=== PATIENT | female | born 1960 | race Caucasian/White ===

== ENCOUNTER → 2016-11-27 | Outpatient (CLI) | payer BC ==
[~2016-11-27] MED LIST: LOTREL PO; MULTTAB58 PO; WARF2TAB PO
--- NOTE | 2016-11-27 16:37 | MAMMOGRAPHY REPORT ---
BILATERAL DIGITAL SCREENING MAMMOGRAM TOMOSYNTHESIS WITH CAD: 11/27/2016 CLINICAL HISTORY: Routine screening. Patient has no complaints. TECHNIQUE: Breast tomosynthesis in addition to standard 2D mammography was performed. Current study was also evaluated with a Computer Aided Detection (CAD) system. COMPARISON: Comparison is made to exams dated: 11/04/2015 mammogram, 11/01/2014 mammogram, 11/04/20 13 mammogram, and 10/29/2013 mammogram - [facility]. BREAST COMPOSITION: There are scattered areas of fibroglandular density in both breasts. FINDINGS: No suspicious mass, architectural distortion or cluster of microcalcifications is seen. IMPRESSION: ACR BI-RADS CATEGORY 1: NEGATIVE There is no mammographic evidence of malignancy. A 1 year screening mammogram is recommended. The p atient will receive written notification of the results. Approximately 10% of breast cancers are not detected with mammography. A negative mammographic repor t should not delay biopsy if a clinically suggestive mass is present. Lelia link/zackery:11/27/2016 15:18:28 Gluing Machine Operator: Jaky Romero, [facility] letter sent: Normal 1/2 BI-RADS Code: ACR BI-RADS Category 1: Negative
== END | disposition home or self-care (01) ==
LOC: C.MAMM 07:33
PROVIDERS: ATTEND Obstetrics & Gynecology
DX: Z12.31 Encounter for screening mammogram for malignant neoplasm of breast (principal)

== ENCOUNTER → 2017-12-02 | Outpatient (CLI) | payer OTHER ==
--- NOTE | 2017-12-02 14:48 | MAMMOGRAPHY REPORT ---
BILATERAL DIGITAL SCREENING MAMMOGRAM TOMOSYNTHESIS WITH CAD: 12/02/2017 CLINICAL HISTORY: Routine screening examination. TECHNIQUE: Breast tomosynthesis in addition to standard 2D mammography was performed. Current study was also evaluated with a Computer Aided Detection (CAD) system. COMPARISON: Comparison is made to exams dated: 11/27/2016 mammogram, 11/04/2015 mammogram, 11/01/2014 mammogram, 11/04/2013 mammogram, 10/29/2013 mammogram, and 10/28/2012 mammogram - [facility]. BREAST COMPOSITION: There are scattered areas of fibroglandular density in both breasts. FINDINGS: The parenchymal pattern is unchanged. No developing mass, architectural distortion or clus ter of suspicious microcalcifications is seen in either breast. IMPRESSION: ACR BI-RADS CATEGORY 2: BENIGN There is no mammographic evidence of malignancy. A 1 year screening mammogram is recommended. The pa tient will receive written notification of the results. Approximately 10% of breast cancers are not detected with mammography. A negative mammographic report should not delay biopsy if a clinically suggestive mass is present. Lelia Nunez M.D. ay/:12/02/2017 08:11:35 Acid Tank Cleaner: Jaky ANGEL(Domenic)(Zenia), [facility] letter sent: Normal 1/2 BI-RADS Code: ACR BI-RADS Category 2: Benign
== END | disposition home or self-care (01) ==
LOC: C.MAMM 07:40
PROVIDERS: ATTEND Obstetrics & Gynecology
DX: Z12.31 Encounter for screening mammogram for malignant neoplasm of breast (principal)

== ENCOUNTER 2022-10-14 16:39 | Observation (INO) ==
[2022-10-14 17:09] LABS: Basophils # (auto) 0.06 K/uL (0-0.2); Basophils % (auto) 0.4 %; Eosinophils # (auto) 0.07 K/uL (0-0.50); Eosinophils % (auto) 0.4 %; Hemoglobin 15.1 g/dl (12.0-16.0); Immature Granulocytes # (auto) 0.06 K/uL (0.00-0.02); Immature Granulocytes % (auto) 0.4 %; Lymphocytes # (auto) 2.29 K/uL (1.2-3.4); Lymphocytes % (auto) 13.8 %; Mean Corpuscular Hemoglobin 30.8 pg (25.0-34.0); Mean Corpuscular Hgb Conc 33.6 g/dL (32.0-36.0); Mean Corpuscular Volume 91.8 fL (80.0-100.0); Mean Platelet Volume 9.4 fL (9.4-12.3); Monocytes % (auto) 6.6 %; Neutrophils # (auto) 13.01 K/uL (1.4-6.5); Neutrophils % (auto) 78.4 %; Platelet Count 375 K/uL (130-400); RDW Standard Deviation 43.7 fL (36.4-46.3); White Blood Count 16.59 K/ul (4.8-10.8)
[2022-10-14 17:21] LABS: Partial Thromboplastin Ratio 0.9; Partial Thromboplastin Time 25.4 Seconds (21.0-31.0); Prothrombin Time 10.6 Seconds (9.0-12.0)
[2022-10-14 17:36] LABS: Albumin Globulin Ratio 1.6 (0.9-2); Albumin Level 4.6 gm/dl (3.4-5.0); BUN Creatinine Ratio 18.3 (10-20); Bilirubin,Total 0.6 mg/dl (0.2-1.0); Calcium 9.9 mg/dl (8.5-10.1); Creatinine Clr Calc Pharmacy 107.3 ml/min; Est GFR (African American) 113.2 ml/min; Est GFR (Non-African American) 97.7 ml/min; Globulin 2.9 gm/dl (2.5-4.0); Potassium 3.5 mmol/L (3.5-5.1); Total Protein 7.5 gm/dl (6.0-8.3)
--- NOTE | 2022-10-14 17:41 | XRay Report ---
XR chest 1V not portable HISTORY: 62 years-old Female Chest Pain acute chest pain COMPARISON: 03/22/2014 TECHNIQUE: AP view of the chest FINDINGS: Cardiomediastinal and hilar silhouettes are within normal limits. No pneumothorax, pleural effusion, airspace consolidation or overt pulmonary edema. Bones appear grossly intact. IMPRESSION: No acute process. ACT 112: Negative or not required by law. The above report was generated using voice recognition software. It may contain grammatical, syntax o r spelling errors. Electronically signed by: Jarred Celeste M.D. 10/14/2022 5:40 PM
--- NOTE | 2022-10-14 18:43 | Ultrasound Report ---
US gallbladder HISTORY: 62 years-old Female ruq pain acute right upper quadrant abdominal pain COMPARISON: Abdominal ultrasound 12/02/2012 TECHNIQUE: Multiple real-time sonographic images of the abdominal right upper quadrant were obtained assessing grayscale appearance, color and Doppler flow FINDINGS: The liver measures 15.1 cm in length and is unremarkable. No hepatic mass identified. Negative sonogr aphic Toro's sign. Mild gallbladder distention with layering cholelithiasis. No gallbladder wall th ickening or pericholecystic fluid identified. Normal common bile duct, 4 mm. The imaged right kidney is unremarkable without hydronephrosis. IMPRESSION: 1. Cholelithiasis without sonographic evidence of acute cholecystitis. 2. No biliary ductal dilation. ACT 112: Negative or not required by law. The above report was generated using voice recognition software. It may contain grammatical, syntax o r spelling errors. Electronically signed by: Jarred Celeste M.D. 10/14/2022 6:42 PM
[2022-10-14] MEDS ORDERED: KETOROLAC 30 MG/ML VIAL IV STA (18:52)
[2022-10-14] MEDS ORDERED: SODIUM CHLORIDE 0.9% 1000ML 1,000 ML IV ONE (18:52)
--- NOTE | 2022-10-14 19:10 | Emergency Department Note ---
History of Present Illness General Chief complaint: Chest Pain Stated complaint: CHEST TIGHTNESS/PAIN,STERNUM PAIN, VOMITING Time Seen by Provider: 10/14/22 17:40 History of Present Illness Maximum Pain Intensity: 7 62-year-old female presents to the ED with a chief complaint of right upper quadrant and epigastric abdominal pain that started around 1 AM this morning. She states that she ate a turkey dinner and stuffing and potatoes yesterday around 5 PM. She had nausea and vomiting a couple of times through the night. She states that her pain has persisted and even got worse through the day. She reports a dull achy pain. She denies having any nausea now. She has not eaten since yesterday because of her symptoms. No fevers. Home Medications Medication Instructions Recorded Confirmed Type MULTIPLE VITAMIN (MULTIVITAMIN) 1 tab PO 3-4XWK #0 tabs 12/24/12 01/31/22 History lotrel 10/40mg 1 tab PO DAILY ##0 12/24/12 01/31/22 History WARFARIN SODIUM (COUMADIN) 2 mg PO DAILY #60 tabs 04/16/14 Rx methylprednisolone 4 mg tablets in See Rx Instructions .Route 08/30/20 08/30/20 Rx a dose pack .COMPLEX #21 ea mometasone 50 mcg/actuation nasal 2 spray intranasal DAILY #17 grams 08/30/20 01/31/22 Rx spray Allergies Allergy/AdvReac Type Severity Reaction Status Date / Time ethinyl estradiol Allergy Mild sinus Verified 01/31/22 13:03 [From Seasonale (91)] congestion levonorgestrel Allergy Mild sinus Verified 01/31/22 13:03 [From Seasonale (91)] congestion No Known Drug Allergies Allergy Verified 08/30/20 09:31 Past Med/Surg History Medical History (Updated 10/14/22 @ 19:10 by Andrés Pitt DO) Conductive hearing loss of both ears Hypertension Seasonal allergies Surgical History H/O umbilical hernia repair H/O: hysterectomy History of hip replacement Family History Father Hypertension Heart disease Mother Hypertension Stroke Allergies Denies family history of Hearing loss No family history of adverse response to anesthesia No family history of bleeding disorder Cancer Asthma Social History Smoking Status: Never smoker Hx Alcohol Use: Yes Alcohol Intake Frequency Comment: 1-2 times a month Hx Substance Use: No Preferred Language: [place] Communication Ability: Effective marital status: Current Living Situation: Spouse current occupational status: employed current occupation: [employer] Instructor How many Children do You have: 2 Feels Safe at Home: Yes Review of Systems A total of 10 systems reviewed and were otherwise negative Physical Exam Vital Signs Vital Signs - 24 hr 10/14/22 16:43 10/14/22 17:53 10/14/22 18:00 Temperature 37.3 C Temperature Source Temporal Artery Scan Pulse Rate 89 70 70 Pulse Rate from SpO2 Sensor 71 70 Respiratory Rate 20 12 15 Respiratory Effort / Characteristics Non-Labored Respiratory Depth Normal Respiratory Pattern Regular Blood Pressure 155/97 H Blood Pressure Mean 116 Blood Pressure Position Sitting Pulse Oximetry 99 99 99 Oxygen Delivery Method Room Air Sepsis Recent Fever Within 48 Hours No Sepsis New/Unexplained Change in Mental Status No Sepsis Action Taken by Nursing No Action Required 10/14/22 18:39 10/14/22 18:39 10/14/22 18:40 Temperature Temperature Source Pulse Rate 74 74 Pulse Rate from SpO2 Sensor 78 73 Respiratory Rate 7 L 17 Respiratory Effort / Characteristics Respiratory Depth Respiratory Pattern Blood Pressure 162/96 H Blood Pressure Mean 118 Blood Pressure Position Pulse Oximetry 98 98 Oxygen Delivery Method Sepsis Recent Fever Within 48 Hours Sepsis New/Unexplained Change in Mental Status Sepsis Action Taken by Nursing CONSTITUTIONAL/VITAL SIGNS: Reviewed / noted above. GENERAL: Non-toxic in appearance. INTEGUMENTARY: Warm, dry, and [place]. HEAD: Normocephalic. EYES: without scleral icterus or trauma. ENT/OROPHARYNX: clear and moist. LYMPHADENOPATHY/NECK: Is supple without lymphadenopathy or meningismus. RESPIRATORY: Clear to auscultation bilaterally. No increased work of breathing. CARDIOVASCULAR: Regular rate and rhythm. GI/ABDOMEN: Soft and tender in the right upper quadrant and epigastric area. No organomegaly or pulsatile mass. EXTREMITIES: Warm and well perfused. BACK: No CVA tenderness. NEUROLOGICAL: Intact without focal deficits. PSYCHIATRIC: normal affect. MUSCULOSKELETAL: Normally developed with good muscle tone. TRIAGE NURSING DOCUMENTATION REVIEWED. Course Administered Medications Sodium Chloride (Nss 1000ml) 1,000 mls @ 999 mls/hr IV .Q1H1M ONE Stop: 10/14/22 19:52 Last Admin: 10/14/22 18:59 Dose: 999 mls/hr Documented By: EMILY Discontinued Medications Ketorolac Tromethamine (Ketorolac 30 Mg/Ml Vial) 30 mg IV NOW STA Stop: 10/14/22 18:53 Last Admin: 10/14/22 19:03 Dose: 30 mg Documented By: EMILY Medical Decision Making Differential Diagnosis Differential considered: pancreatitis, hepatitis, acute cholecystitis, AAA, UTI, pyelonephritis, kidney stones, appendicitis, diverticulitis, shingles, bowel obstruction, mesenteric ischemia, intussusception,hernia Medical Records Attestation: I reviewed the patient's medical records. Home Medications Current Medication List: was personally reviewed by me Laboratory Data Attestation: I reviewed the patient's lab results. Result diagrams: 10/14/22 16:50 10/14/22 16:50 Lab Results 10/14/22 10/14/22 10/14/22 Range/Units 16:50 16:50 16:50 WBC 16.59 H (4.8-10.8) K/ul RBC 4.90 (3.93-5.22) M/uL Hgb 15.1 (12.0-16.0) g/dl Hct 45.0 H (34.1-44.9) % MCV 91.8 (80.0-100.0) fL MCH 30.8 (25.0-34.0) pg MCHC 33.6 (32.0-36.0) g/dL RDW Std Deviation 43.7 (36.4-46.3) fL RDW Coeff of Annita 13.0 (11.5-14.5) % Plt Count 375 (130-400) K/uL MPV 9.4 (9.4-12.3) fL Immature Gran % (Auto) 0.4 % Neut % (Auto) 78.4 % Lymph % (Auto) 13.8 % Bath % (Auto) 6.6 % Eos % (Auto) 0.4 % Baso % (Auto) 0.4 % Neut # (Auto) 13.01 H (1.4-6.5) K/uL Lymph # (Auto) 2.29 (1.2-3.4) K/uL Bath # (Auto) 1.10 H (0.24-0.82) K/uL Eos # (Auto) 0.07 (0-0.50) K/uL Baso # (Auto) 0.06 (0-0.2) K/uL Immature Gran # (Auto) 0.06 H (0.00-0.02) K/uL PT 10.6 (9.0-12.0) Seconds INR 1.0 (0.9-1.1) APTT 25.4 (21.0-31.0) Seconds PTT Ratio 0.9 Sodium 140 (136-145) mmol/L Potassium 3.5 (3.5-5.1) mmol/L Chloride 103 (98-107) mmol/L Carbon Dioxide 29 (21-32) mmol/L Anion Gap 8 (3-11) BUN 11 (6-23) mg/dl Creatinine 0.60 (0.6-1.2) mg/dl Est Cr Clr Drug Dosing 107.3 ml/min Est GFR ( Amer) 113.2 ml/min Est GFR (Non-Af Amer) 97.7 ml/min BUN/Creatinine Ratio 18.3 (10-20) Glucose 97 (70-99(Fasting)) mg/dl Calcium 9.9 (8.5-10.1) mg/dl Total Bilirubin 0.6 (0.2-1.0) mg/dl AST 15 (13-39) U/L ALT 20 (7-52) U/L Alkaline Phosphatase 105 H (34-104) U/L Troponin I High Sens 6.0 (0-14) pg/ml Total Protein 7.5 (6.0-8.3) gm/dl Albumin 4.6 (3.4-5.0) gm/dl Globulin 2.9 (2.5-4.0) gm/dl Albumin/Globulin Ratio 1.6 (0.9-2) Lipase (11-82) U/L 10/14/ Range/Units 16:50 WBC (4.8-10.8) K/ul RBC (3.93-5.22) M/uL Hgb (12.0-16.0) g/dl Hct (34.1-44.9) % MCV (80.0-100.0) fL MCH (25.0-34.0) pg MCHC (32.0-36.0) g/dL RDW Std Deviation (36.4-46.3) fL RDW Coeff of Annita (11.5-14.5) % Plt Count (130-400) K/uL MPV (9.4-12.3) fL Immature Gran % (Auto) % Neut % (Auto) % Lymph % (Auto) % Bath % (Auto) % Eos % (Auto) % Baso % (Auto) % Neut # (Auto) (1.4-6.5) K/uL Lymph # (Auto) (1.2-3.4) K/uL Bath # (Auto) (0.24-0.82) K/uL Eos # (Auto) (0-0.50) K/uL Baso # (Auto) (0-0.2) K/uL Immature Gran # (Auto) (0.00-0.02) K/uL PT (9.0-12.0) Seconds INR (0.9-1.1) APTT (21.0-31.0) Seconds PTT Ratio Sodium (136-145) mmol/L Potassium (3.5-5.1) mmol/L Chloride (98-107) mmol/L Carbon Dioxide (21-32) mmol/L Anion Gap (3-11) BUN (6-23) mg/dl Creatinine (0.6-1.2) mg/dl Est Cr Clr Drug Dosing ml/min Est GFR ( Amer) ml/min Est GFR (Non-Af Amer) ml/min BUN/Creatinine Ratio (10-20) Glucose (70-99(Fasting)) mg/dl Calcium (8.5-10.1) mg/dl Total Bilirubin (0.2-1.0) mg/dl AST (13-39) U/L ALT (7-52) U/L Alkaline Phosphatase (34-104) U/L Troponin I High Sens (0-14) pg/ml Total Protein (6.0-8.3) gm/dl Albumin (3.4-5.0) gm/dl Globulin (2.5-4.0) gm/dl Albumin/Globulin Ratio (0.9-2) Lipase 19 (11-82) U/L Imaging Data Radiologist's Impression: Chest X-Ray 10/14/22 16:46 XR chest 1V not portable HISTORY: 62 years-old Female Chest Pain acute chest pain COMPARISON: 03/22/2014 TECHNIQUE: AP view of the chest FINDINGS: Cardiomediastinal and hilar silhouettes are within normal limits. No pneumothorax, pleural effusion, airspace consolidation or overt pulmonary edema. Bones appear grossly intact. IMPRESSION: No acute process. ACT 112: Negative or not required by law. The above report was generated using voice recognition software. It may contain grammatical, syntax or spelling errors. Electronically signed by: Jarred Celeste M.D. 10/14/2022 5:40 PM Gallbladder Ultrasound 10/14/22 17:52 US gallbladder HISTORY: 62 years-old Female ruq pain acute right upper quadrant abdominal pain COMPARISON: Abdominal ultrasound 12/02/2012 TECHNIQUE: Multiple real-time sonographic images of the abdominal right upper quadrant were obtained assessing grayscale appearance, color and Doppler flow FINDINGS: The liver measures 15.1 cm in length and is unremarkable. No hepatic mass identified. Negative sonographic Troo's sign. Mild gallbladder distention with layering cholelithiasis. No gallbladder wall thickening or pericholecystic fluid identified. Normal common bile duct, 4 mm. The imaged right kidney is unremarkable without hydronephrosis. IMPRESSION: 1. Cholelithiasis without sonographic evidence of acute cholecystitis. 2. No biliary ductal dilation. ACT 112: Negative or not required by law. The above report was generated using voice recognition software. It may contain grammatical, syntax or spelling errors. Electronically signed by: Jarred Celeste M.D. 10/14/2022 6:42 PM ECG Data Attestation: I personally reviewed and interpreted this ECG as follows: Additional Comments: Twelve-lead EKG: Per my interpretation shows a normal sinus rhythm at a rate of 83. No ST elevation. No PVCs. Normal QTC. MDM Narrative 62-year-old female presents with right upper quadrant abdominal pain and epigastric Pain since 1 AM this morning associated with nausea and vomiting. She ate her last meal at 5 PM yesterday that was a turkey dinner. The patient has an elevated white blood cell count of 16.59. Chemistry panel was unremarkable. EKG shows a sinus rhythm without ischemic change. Troponin was negative. Ultrasound shows cholelithiasis without evidence of acute cholecystitis. Lipase was normal. The symptoms are concerning for biliary colic. The patient continues having abdominal discomfort. She was given some IV fluids and IV Toradol. She will be seen by the hospitalist for further evaluation and care. Impression & Plan Intractable right upper quadrant abdominal pain, Biliary colic, Abdominal pain, epigastric, Cholelithiasis Discharge Plan Visit Data Chief Complaint: Chest Pain Stated Complaint: CHEST TIGHTNESS/PAIN,STERNUM PAIN, VOMITING ED Provider: Andrés Pitt Discharge Problem: Intractable right upper quadrant abdominal pain, Biliary colic, Abdominal pain, epigastric, Cholelithiasis Patient Disposition: Being Evaluated by Hospitalist Forms Stand Alone Forms: [facility] [place] Prescriptions Prescriptions: No Action MULTIPLE VITAMIN (MULTIVITAMIN) 1 TAB tablet 1 tab PO 3-4XWK Qty: 0 lotrel 10/40mg 1 tab PO DAILY Qty: 0 WARFARIN SODIUM (COUMADIN) 2 MG tablet 2 mg PO DAILY Qty: 60 1RF Rx Instructions: Take as directed daily x 6 weeks methylprednisolone 4 mg tablets,dose pack See Rx Instructions .ROUTE .COMPLEX Qty: 21 0RF Rx Instructions: Take as directed mometasone 50 mcg/actuation spray,non-aerosol 2 spray intranasal DAILY Qty: 17 2RF Rx Instructions: administer into each nostril Referrals Referrals: Axel Holden [Primary Care Provider] -
[2022-10-14 20:03] LABS: Influenza A virus by PCR Negative (Neg); Influenza B virus by PCR Negative (Neg); RSV by PCR Negative (Neg); SARS CoV2 RNA(COVID-19) Ceph NEGATIVE (Negative)
--- NOTE | 2022-10-14 20:08 | History & Physical Report ---
Date of Service October 14, 2022 Assessment & Plan (1) Cholelithiasis: Plan: - RUQ abdominal pain after turkey and mashed potatoes last night, pain now mostly resolved after IV Toradol. - WBC 16, no LFT elevation. - Afebrile, no tachycardia or overwhelming evidence of infection, leukocytosis may be reactive vs infection, will cover with Zosyn as a precaution for now. - GB US: The liver measures 15.1 cm in length and is unremarkable. No hepatic mass identified. Negative sonographic Toro's sign. Mild gallbladder distention with layering cholelithiasis. No gallbladder wall thickening or pericholecystic fluid identified. Normal common bile duct, 4 mm. - Will observer overnight further pain and n/v control. - HIDA scan ordered. (2) Hypertension: Plan: - Previously on Lotrel combo pill, now takes amlodipine 10 gm and benazepril 40 mg daily. - Ordered amlodipine and lisinopril 10 mg as we do not stock benazepril here. - Moderately hypertensive here probably due to pain, will watch overnight and intervened for sustained elevated BP > 180 in setting of adequate pain control. (3) Seasonal allergies: Plan: - Claritin and Flonase daily. Plan - Obs med/surg. - SCDs for VTE ppx, defer on chemoppx given mobility, overall health status, - Full Code. History of Present Illness Chief Complaint: abdominal pain, nausea, vomiting x 1 day Primary Care Provider: Axel Holden Brittany Cheung is a 62-year-old female with past medical history of hypertension is presenting today with abdominal pain. Patient ate leftover turkey and mashed potatoes last night shortly later began feeling bloated with nausea and vomiting. She vomited 3 times throughout the night and got little to no sleep due to the pain. It is a dull ache in her central and right upper quadrant. She Took Pepto-Bismol this morning and this helped somewhat. She has felt fatigued and warm, but without any documented fever or chills. She has not had anything to eat since last evening due to fear of vomiting. Upon presentation she is mildly hypertensive, otherwise vital signs within normal limits, labs notable for WBC of 16, otherwise labs unrevealing, without elevated LFTs, lipase 19. COVID/flu/RSV negative. Gallbladder ultrasound shows normal liver measuring 15.1 cm in length, mild gallbladder distention with layering cholelithiasis, but without gallbladder wall thickening or pericholecystic fluid, CBD measuring 4 mm. Negative sonographic Toro sign. She received IV Toradol in the ED and notes her pain is much better. Allergies Allergy/AdvReac Type Severity Reaction Status Date / Time pollen extracts Allergy Mild Congested Verified 10/14/22 21:04 Home Medications Medication Instructions Recorded Confirmed Type amlodipine 10 mg tablet 10 mg PO QAM 10/14/22 10/14/22 History benazepril 40 mg tablet 40 mg PO QAM 10/14/22 10/14/22 History fluticasone propionate 50 2 spray intranasal QPM 10/14/22 10/14/22 History mcg/actuation nasal spray,suspension loratadine 10 mg tablet (Claritin) 10 mg PO QPM 10/14/22 10/14/22 History Past Med/Surg History Medical History (Updated 10/14/22 @ 20:33 by Echo Kiran PA-C) Conductive hearing loss of both ears Hypertension Seasonal allergies Surgical History H/O umbilical hernia repair H/O: hysterectomy History of hip replacement Family History Father Hypertension Heart disease Mother Hypertension Stroke Allergies Denies family history of Hearing loss No family history of adverse response to anesthesia No family history of bleeding disorder Cancer Asthma Social History Smoking Status: Never smoker Hx Alcohol Use: Yes Alcohol Intake Frequency Comment: 1-2 times a month Hx Substance Use: No Preferred Language: Armenian Communication Ability: Effective marital status: Current Living Situation: Spouse current occupational status: employed current occupation: [employer] How many Children do You have: 2 Feels Safe at Home: Yes Review of Systems Review of Systems: Constitutional: fatigue and anorexia x 1 day; No fever/chills, weakness,myalgias, night sweats Eyes: No diplopia, no worsening or blurred vision ENT: normal hearing, no trouble swallowing Respiratory: No cough, sputum, dyspnea at rest or on exertion Cardiovascular: No chest pain, tightness or palpitations Abdomen: upper, RUQ pain and nausea, nonbloody vomiting x3 since last evening : Denies dysuria, hematuria, increased urgency/frequency, urinary retention Musculoskeletal: No joint pain, calf pain, swelling Neurologic: No weakness, numbness/tingling, or balance problems Psychiatric: No anxiety or depression Skin: No rash or itch Physical Exam Physical Exam: General: awake, alert, no apparent distress Head: Normocephalic, atraumatic ENT: PERRL, EOMI, no pharyngeal exudate, mucous membranes moist Chest: Clear to auscultation, on room air, no adventitious breath sounds Cardiac: Regular rate and rhythm, no murmur, no JVD, normal peripheral pulses, good capillary refill Abdominal: NABS x 4 quadrants, soft, nontender to palpation, no rebound, guarding or tenderness Extremities: Normal inspection, no peripheral edema or erythema, calfs nontender to palpation Psych: Normal mood and affect Neuro: AAO x 3, strength intact bilaterally and rated 5/5, no motor deficits, speech is clear, no peripheral sensory deficits Skin: no rash or erythema Results & Data Results & Data ([facility]) Vital Signs (Past 12 Hours) Vital Signs Temp Pulse Resp BP Pulse Ox O2 Del Method 10/14/22 19:00 71 14 162/90 H 97 Room Air 10/14/22 18:40 74 17 98 10/14/22 18:39 74 7 L 98 10/14/22 18:39 162/96 H 10/14/22 18:00 70 15 99 10/14/22 17:53 70 12 99 10/14/22 16:43 37.3 C 89 20 155/97 H 99 Room Air Laboratory Results Abnormal lab results 10/14/22 10/14/22 Range/Units 16:50 16:50 WBC 16.59 H (4.8-10.8) K/ul Hct 45.0 H (34.1-44.9) % Neut # (Auto) 13.01 H (1.4-6.5) K/uL [place] # (Auto) 1.10 H (0.24-0.82) K/uL Immature Gran # (Auto) 0.06 H (0.00-0.02) K/uL Alkaline Phosphatase 105 H (34-104) U/L Diagnostic Findings Chest X-Ray 10/14/22 16:46 XR chest 1V not portable HISTORY: 62 years-old Female Chest Pain acute chest pain COMPARISON: 03/22/2014 TECHNIQUE: AP view of the chest FINDINGS: Cardiomediastinal and hilar silhouettes are within normal limits. No pneumothorax, pleural effusion, airspace consolidation or overt pulmonary edema. Bones appear grossly intact. IMPRESSION: No acute process. ACT 112: Negative or not required by law. The above report was generated using voice recognition software. It may contain grammatical, syntax or spelling errors. Electronically signed by: Jarred Celeste M.D. 10/14/2022 5:40 PM Gallbladder Ultrasound 10/14/22 17:52 US gallbladder HISTORY: 62 years-old Female ruq pain acute right upper quadrant abdominal pain COMPARISON: Abdominal ultrasound 12/02/2012 TECHNIQUE: Multiple real-time sonographic images of the abdominal right upper quadrant were obtained assessing grayscale appearance, color and Doppler flow FINDINGS: The liver measures 15.1 cm in length and is unremarkable. No hepatic mass identified. Negative sonographic Toro's sign. Mild gallbladder distention with layering cholelithiasis. No gallbladder wall thickening or pericholecystic fluid identified. Normal common bile duct, 4 mm. The imaged right kidney is unremarkable without hydronephrosis. IMPRESSION: 1. Cholelithiasis without sonographic evidence of acute cholecystitis. 2. No biliary ductal dilation. ACT 112: Negative or not required by law. The above report was generated using voice recognition software. It may contain grammatical, syntax or spelling errors. Electronically signed by: Jarred Celeste M.D. 10/14/2022 6:42 PM Code Status & VTE Plan Code Status Full Code. Supervising Physician Co-Signing Physician Notes Attending addendum: I have physically seen this patient, have supervised the NOÉ's activities, and agree with the H&P unless as otherwise noted. Assessment and Plan: Cholelithiasis- Noted on gallbladder ultrasound Normal LFTs WBC is elevated at 16.59 The patient has had persistent symptoms throughout the day following her ingestion of turkey for Thanksgiving Plan to order HIDA scan with gallbladder ejection fraction with a.m. to test for dysfunctional gallbladder. Do not think MRCP is indicated at this time Status post normal saline 1 L in the ED. The patient did get significant relief with Toradol 30 mg IV, and will be continued every 6 hours as needed N.p.o. after midnight Hypertension- Continue amlodipine. Controlling pain will continue to help with controlling blood pressure substituting lisinopril for benazepril as noted due to formulary interchange Remaining orders and notations as noted PG Care Time/CCT Total # of Minutes Spent Total Time Spent with Patient: Total time spent is greater than 50% in coordination of care (as documented) at patient's floor/unit and/or counseling patient: Coding Level of Care Code INT OBSERVATION CARE 70M LVL 3 Diagnoses Cholelithiasis K80.20 Hypertension I10 Seasonal allergies J30.2
[2022-10-14] MEDS ORDERED: PIPERACILLIN/TAZOBACTAM 3.375 GM in DEXTROSE 5% 100 ML IV STA (20:50)
[2022-10-14] MEDS ORDERED: LACTATED RINGER'S 1,000 ML IV SCH (23:15)
[2022-10-14] MEDS ORDERED: KETOROLAC TROMETHAMINE 15 MG/ML VIAL IV PRN (23:15)
[2022-10-14] MEDS ORDERED: ONDANSETRON INJ 2 MG/ML 2 ML VIAL IV PRN (23:15)
[2022-10-14] MEDS ORDERED: ACETAMINOPHEN 1,000 MG/100 ML VIAL IV PRN (23:15)
[2022-10-14] MEDS ORDERED: FLUARIX QUADRIVALENT 0.5 ML SYR IM ONE (23:34)
[2022-10-15] MEDS: PIPERACILLIN/TAZOBACTAM 3.375 GM in DEXTROSE 5% 100 ML IV SCH ×2 (01:40→10:50)
[2022-10-15 05:49] LABS: Basophils # (auto) 0.04 K/uL (0-0.2); Basophils % (auto) 0.3 %; Eosinophils # (auto) 0.23 K/uL (0-0.50); Hematocrit (blood only) 40.4 % (34.1-44.9); Hemoglobin 13.7 g/dl (12.0-16.0); Immature Granulocytes # (auto) 0.03 K/uL (0.00-0.02); Immature Granulocytes % (auto) 0.3 %; Lymphocytes # (auto) 1.94 K/uL (1.2-3.4); Lymphocytes % (auto) 16.9 %; Mean Corpuscular Hemoglobin 30.7 pg (25.0-34.0); Mean Corpuscular Hgb Conc 33.9 g/dL (32.0-36.0); Mean Corpuscular Volume 90.6 fL (80.0-100.0); Mean Platelet Volume 9.6 fL (9.4-12.3); Monocytes % (auto) 8.7 %; Neutrophils # (auto) 8.22 K/uL (1.4-6.5); Neutrophils % (auto) 71.8 %; Platelet Count 325 K/uL (130-400); RDW Coefficient of Variation 12.9 % (11.5-14.5); RDW Standard Deviation 42.8 fL (36.4-46.3); Red Blood Count 4.46 M/uL (3.93-5.22); White Blood Count 11.46 K/ul (4.8-10.8)
[2022-10-15 06:12] LABS: Albumin Globulin Ratio 1.6 (0.9-2); Albumin Level 3.8 gm/dl (3.4-5.0); BUN Creatinine Ratio 15.3 (10-20); Bilirubin,Total 0.9 mg/dl (0.2-1.0); Calcium 8.7 mg/dl (8.5-10.1); Creatinine Clr Calc Pharmacy 109.2 ml/min; Est GFR (African American) 113.9 ml/min; Est GFR (Non-African American) 98.2 ml/min; Globulin 2.4 gm/dl (2.5-4.0); Potassium 3.5 mmol/L (3.5-5.1); Total Protein 6.2 gm/dl (6.0-8.3)
[2022-10-15] MEDS ORDERED: FLUTICASONE PROPIONATE NA SPR 16 GM BTL SCH (09:00)
[2022-10-15] MEDS ORDERED: LORATADINE 10 MG TAB PO SCH (09:00)
[2022-10-15] MEDS ORDERED: MULTIVITAMIN TAB PO SCH (09:00)
[2022-10-15] MEDS ORDERED: amLODIPine BESYLATE 5 MG TAB PO SCH (09:00)
[2022-10-15] MEDS ORDERED: lisinopril 10 MG TAB PO SCH (09:00)
--- NOTE | 2022-10-15 10:43 | Electrocardiogram Report ---
Test Reason : Blood Pressure : / mmHG Vent. Rate : 083 BPM Atrial Rate : 083 BPM P-R Int : 136 ms QRS Dur : 090 ms QT Int : 374 ms P-R-T Axes : 057 027 000 degrees QTc Int : 439 ms Normal sinus rhythm Possible Left atrial enlargement Abnormal ECG When compared with ECG of 17-APR-2014 08:57, No significant change was found Confirmed by Nicholas Martinez ([id number]) on 10/15/2022 10:43:34 AM Referred By: REFERRED SELF Confirmed By:Umang Martinez
--- NOTE | 2022-10-15 15:15 | Discharge Summary ---
Discharge Summary Date of Service October 15, 2022 Admission HPI Per Admitting Provider Brittany Cheung is a 62-year-old female with past medical history of hypertension is presenting today with abdominal pain. Patient ate leftover turkey and mashed potatoes last night shortly later began feeling bloated with nausea and vomiting. She vomited 3 times throughout the night and got little to no sleep due to the pain. It is a dull ache in her central and right upper quadrant. She Took Pepto-Bismol this morning and this helped somewhat. She has felt fatigued and warm, but without any documented fever or chills. She has not had anything to eat since last evening due to fear of vomiting. Upon presentation she is mildly hypertensive, otherwise vital signs within normal limits, labs notable for WBC of 16, otherwise labs unrevealing, without elevated LFTs, lipase 19. COVID/flu/RSV negative. Gallbladder ultrasound shows normal liver measuring 15.1 cm in length, mild gallbladder distention with layering cholelithiasis, but without gallbladder w all thickening or pericholecystic fluid, CBD measuring 4 mm. Negative sonographic Toro sign. She received IV Toradol in the ED and notes her pain is much better. Admission Exam Per Admitting Provider General: awake, alert, no apparent distress Head: Normocephalic, atraumatic ENT: PERRL, EOMI, no pharyngeal exudate, mucous membranes moist Chest: Clear to auscultation, on room air, no adventitious breath sounds Cardiac: Regular rate and rhythm, no murmur, no JVD, normal peripheral pulses, good capillary refill Abdominal: NABS x 4 quadrants, soft, nontender to palpation, no rebound, guarding or tenderness Extremities: Normal inspection, no peripheral edema or erythema, calfs nontender to palpation Psych: Normal mood and affect Neuro: AAO x 3, strength intact bilaterally and rated 5/5, no motor deficits, speech is clear, no peripheral sensory deficits Skin: no rash or erythema Principal Dx & Hospital Course #1 = Principal Diagnosis (1) Cholelithiasis: - RUQ abdominal pain after turkey and mashed potatoes last night, pain now mostly resolved after IV Toradol. - WBC 16 ->11.46 on Zosyn, transitioned to cipro/Flagyl x5 days on discharge. - GB US: The liver measures 15.1 cm in length and is unremarkable. No hepatic mass identified. Negative sonographic Toro's sign. Mild gallbladder distention with layering cholelithiasis. No gallbladder wall thickening or pericholecystic fluid identified. Normal common bile duct, 4 mm. - HIDA scan ordered, however patient was pain free, benign abdominal exam, and hungry and HIDA unable to be performed until tomorrow. Diet escalated without incident, patient discharged home with PCP/GI follow up with low fat diet. She wants to defer any surgery at this time if possible. (2) Hypertension: Continue home amlodipine/benazepril with PCP follow-up. (3) Seasonal allergies: - Claritin and Flonase daily. Plan Discharged home with self-care, PCP/GI follow-up for cholelithiasis Discharge Exam Constitutional WD/WN, vitals as above Respiratory normal respiratory effort, lungs clear to auscultation Cardiovascular RRR, no murmur, no edema Gastrointestinal (Abdomen) normal bowel sounds, soft, nontender, no hepatosplenomegaly Psychiatric A+Ox3, euthymic affect Updated Medication List Medication Instructions Recorded Confirmed Type amlodipine 10 mg tablet 10 mg PO QAM 10/14/22 10/14/22 History benazepril 40 mg tablet 40 mg PO QAM 10/14/22 10/14/22 History fluticasone propionate 50 2 spray intranasal QPM 10/14/22 10/14/22 History mcg/actuation nasal spray,suspension loratadine 10 mg tablet (Claritin) 10 mg PO QPM 10/14/22 10/14/22 History ciprofloxacin HCl 500 mg tablet 500 mg PO Q12H #10 tabs 10/15/22 Rx (Cipro) metronidazole 500 mg tablet 500 mg PO Q8H 5 days #15 tabs 10/15/22 Rx Hospital Stay Data Consultations 10/14/22 19:06 ED Decision to Admit Stat Diagnostic Imagining Performed 10/14/22 17:52 US gallbladder Stat Pending Results Patient Have Any Pending Studies at Discharge: No Discharge Instructions Given to Patient (Per Discharging Provider) You were admitted to the hospital for evaluation of abdominal pain, and found to have some gallstones on gallbladder ultrasound. You also had an elevated white blood cell count, which could be from infection, dehydration, and other causes. We suspect you may have a mild infection from the gallstones. However, your pain improved with conservative treatments and low fat diet, and you were feeling well enough for home, you were felt to be safe for discharge home with the following recommendations: 1) START ciprofloxacin, one 400 milligram tablet every 12 hours for a total of 5 days. 2) START metronidazole, one 500 milligram tablet every 8 hours for a total of 5 days. 3) FOLLOW UP with your family doctor in the next 7 days or so. I also provided the number for Gastroenterology Dr. Gutierrez, for follow up of gallbladder disease. A HIDA scan can be considered in the future on a non-urgent basis. [facility] in [place] has your antibiotics. Please call your primary care doctor for any medication questions and for follow up. For any urgent medical concerns like worsening abdominal pain, chest pain, trouble breathing, please seek urgent medical attention. Total Time Total Time Spent Total Time Spent (In Minutes): 35 minutes Coding Level of Care Code 13781 OBS Care - Discharge Diagnoses Cholelithiasis K80.20 Hypertension I10 Seasonal allergies J30.2
== END 2022-10-15 17:45 | disposition home or self-care (01) ==
LOC: ED 16:39 → 3N 16:39 → SUATTDRO 20:13 → 3N 10-15 00:42